=== PATIENT | male | born 1955 | race Caucasian/White ===

== ENCOUNTER 2021-02-05 11:51 | Day surgery (SDC) | payer OTHER, SELFPAY ==
[2021-01-31 12:58] VITALS: BMI 28.2
--- NOTE | 2021-02-04 09:02 | HO.ANESPROP2 ---
Documented by User: Indigo Lujan NP 02/04/21 09:02 HPI - Anesthesia Eval Consult details Narrative: 65yo M for Colonoscopy [facility] Past Medical History Medical History (Updated 01/31/21 @ 12:55 by Georgia Dong RN) Asthma Elevated cholesterol Seasonal allergies Surgical History Surgical History (Updated 01/31/21 @ 12:56 by Georgia Dong RN) H/O inguinal hernia repair Hx of colonoscopy Social History Social History (Updated 01/31/21 @ 12:57 by Georgia Dong RN) Patient Tobacco Use Status: Never used Tobacco Use of substances other than those prescribed or required for medical reasons: No Are you DNR?: No Advance Directives: No Advance Directives Information Provided: No (info mailed) Advance Directives on File: No Meds Allergies Allergy/AdvReac Type Severity Reaction Status Date / Time No Known Allergies Allergy Verified 01/31/21 12:56 Home Medications Medication Instructions Recorded Confirmed Last Taken Type Flovent Diskus 01/31/21 01/31/21 02/05/21 History atorvastatin 01/31/21 Unknown History montelukast 10 mg tablet 10 mg PO BEDTIME 01/31/21 01/31/21 Unknown History (Frances) Exam Exam Date and Time: February 04, 2021 09 Height,Weight and Vital Signs: Height 5 ft 6 in Weight 79.379 kg Assessment and Plan Assessment Anesthesia Assessment: Chart Reviewed Documented by User: Paola Emery MD 02/05/21 13:53 [facility] Past Medical History Medical History (Updated 01/31/21 @ 12:55 by Georgia Dong RN) Asthma Elevated cholesterol Seasonal allergies Family History Family history of problems with anesthesia: No Surgical History Surgical History (Updated 01/31/21 @ 12:56 by Georgia Dong RN) H/O inguinal hernia repair Hx of colonoscopy History of Problems with Anesthesia: No Social History Social History (Updated 01/31/21 @ 12:57 by Georgia Dong RN) Patient Tobacco Use Status: Never used Tobacco Use of substances other than those prescribed or required for medical reasons: No Are you DNR?: No Advance Directives: No Advance Directives Information Provided: No (info mailed) Advance Directives on File: No Meds Allergies Allergy/AdvReac Type Severity Reaction Status Date / Time No Known Allergies Allergy Verified 01/31/21 12:56 Home Medications Medication Instructions Recorded Confirmed Last Taken Type Flovent Diskus 01/31/21 01/31/21 02/05/21 History atorvastatin 01/31/21 Unknown History montelukast 10 mg tablet 10 mg PO BEDTIME 01/31/21 01/31/21 Unknown History (Singulair) Exam Height,Weight and Vital Signs: Height 5 ft 6 in Weight 79.379 kg Vital Signs Temp Pulse Resp BP Pulse Ox 02/05/21 12:00 98 F 69 18 157/96 H 98 Airway Mallampati Class: II TM Dist: >3cm Neck ROM: Full Loose/Missing/Broken Teeth: No Heart: RRR Lungs: CTAB Assessment and Plan Assessment Anesthesia Assessment: Anesthesia Plan Discussed Final Anesthetic Review Family History of Problems with Anesthesia: No History of Problems with Anesthesia: No NPO: Yes ASA Class: II Final Preanesthetic Review: No Changes in Pt Med Stat, Meds/Allgs Chart Reviewed, Consent Obtained/Reviewed and Anes Risks/Benef Reviewed Patient Risk: Low Procedure Risk: Low Assessment/Block/Sedation in SS: Assess/Block/Sedation-SS Anesthetic Plan Anesthetic Plan: MAC: Disposition: Standard PACU
[2021-02-05 12:00] VITALS: BP 157/96; PULSE 69; RESP 18; TEMP 36.6; O2SAT 98
[2021-02-05] MEDS: Lactated Ringers 1,000 ML 100 ML IVCONT (12:12)
--- NOTE | 2021-02-05 13:04 | MHC.SHP ---
Pre-Procedural Eval Section A Date of Service: 02/05/21 The patient is an INPATIENT: No Changes since office visit: No Cold of Flu in the past 2 weeks, No New Medical Problems, No Changes in Medication and No Patient answered all questions The History & Physical has been completed within 30 days and I have reviewed it.: Yes Section B Chief Complaint: screening Allergies: Allergies Allergy/AdvReac Type Severity Reaction Status Date / Time No Known Allergies Allergy Verified 01/31/21 12:56 Plan I have reviewed the history and physical and performed a pertinent physical examination on my patient. No changes have occurred unless specified.
--- NOTE | 2021-02-05 13:46 | PM.OP ---
Brief Operative Note Date of Service: 02/05/21 Pre-op diagnosis: screening Post-op diagnosis: same (polyps) Surgeon: Duc Hudson Anesthesia: MAC Was an [employer] used for this Procedure?: No Estimated blood loss (mL): 2 Pathology: other (polyps x3) Condition: stable Disposition: PACU
[2021-02-05 13:48] VITALS: BP 92/64; PULSE 96; RESP 16; TEMP 36.4; O2SAT 96
[2021-02-05 14:05] VITALS: BP 121/78; PULSE 68; RESP 16; TEMP 36.4; O2SAT 97
--- NOTE | 2021-02-05 21:34 | OP_ITS ---
SURGEON: Duc Hudson MD INDICATIONS: Colon cancer screening and prior history of adenomatous colon polyps. PREOPERATIVE DIAGNOSIS: POSTOPERATIVE DIAGNOSIS: PROCEDURE PERFORMED: Colonoscopy to the terminal ileum. ESTIMATED BLOOD LOSS: COMPLICATIONS: ANESTHESIA: ASSISTANTS: SPECIMENS: MEDICATIONS: Monitored anesthesia care. DESCRIPTION OF PROCEDURE: History and physical performed. The risks and benefits of the procedure were explained to the patient. Informed consent was obtained. The patient was placed in the left lateral decubitus position. A digital rectal exam was performed and was found to be normal. The Olympus pediatric video colonoscope was introduced into the rectum and advanced to the cecum without difficulty. The cecum was identified by transillumination, palpation, and identification of ileocecal valve. Examination was performed and the scope was removed. He tolerated the procedure well and was taken to recovery area in stable condition. FINDINGS: The terminal ileum was examined and appeared normal. The visualized colonic mucosa was normal. The quality of the prep was good. Three polyps were identified and removed, 2 with biopsy forceps and 1 with a snare. All measured less than 10 mm. These were located at 80 cm, 60 cm, and 40 cm. No other polyps were identified. There was mild sigmoid diverticulosis. Retroflexed examination showed small internal hemorrhoids. IMPRESSION: Colon polyps. RECOMMENDATION: Follow up the biopsy results. MD ASHLEY Jung/OSIRIS / [id number]
== END 2021-02-05 14:46 | disposition home or self-care (01) ==
PROVIDERS: PCP Internal Medicine; Visit Provider Internal Medicine Gastroenterology
PROC: 0DJD8ZZ Inspection of Lower Intestinal Tract, Via Natural or Artificial Opening Endoscopic (ICD-10-PCS; CPT 45378; principal; 2021-02-05 13:00)
DX: Z12.11 Encounter for screening for malignant neoplasm of colon (principal); Z86.010 Personal history of colon polyps; D12.4 Benign neoplasm of descending colon; D12.5 Benign neoplasm of sigmoid colon; K57.30 Diverticulosis of large intestine without perforation or abscess without bleeding; K64.8 Other hemorrhoids; E78.00 Pure hypercholesterolemia, unspecified; J45.30 Mild persistent asthma, uncomplicated; Z79.51 Long term (current) use of inhaled steroids; Z79.899 Other long term (current) drug therapy
CPT/HCPCS: 45385; 45380; 88305

== ENCOUNTER 2024-02-16 11:56 | Day surgery (SDC) | payer OTHER, MEDICARE, SELFPAY ==
--- NOTE | 2024-02-15 08:20 | HO.ANESPROP2 ---
Documented by User: Indigo Lujan NP 02/15/24 08:21 HPI - Anesthesia Eval Consult details Narrative: 68yo M for Colonoscopy [facility] Past Medical History Medical History Prostate cancer Elevated cholesterol Seasonal allergies Asthma Family History Family history of problems with anesthesia: No Surgical History Surgical History Hx of prostatectomy Hx of colonoscopy H/O inguinal hernia repair History of Problems with Anesthesia: No Social History Social History (Updated 01/31/21 @ 12:57 by Georgia Dong RN) Are you a primary farm or ranch animal caretaker to a significant other at home: No Do you presently have visiting nurse or other home services: No Patient Tobacco Use Status: Never used Tobacco Use of substances other than those prescribed or required for medical reasons: No Have you been hit, kicked, punched, or otherwise hurt by someone within the past year? If so, by whom?: No Are you DNR?: No Advance Directives: No Advance Directives Information Provided: Yes Recently lost weight without trying: No Nutrition Risks: No Nutritional Risk Meds Allergies Allergy/AdvReac Type Severity Reaction Status Date / Time No Known Allergies Allergy Verified 01/31/21 12:56 Home Medications ?Medication ?Instructions ?Recorded ?Confirmed ?Last Taken ?Type Flovent Diskus 01/31/21 01/31/21 02/05/21 History atorvastatin 01/31/21 Unknown History montelukast 10 mg tablet 10 mg PO BEDTIME 01/31/21 01/31/21 Unknown History (Singulair) albuterol sulfate 90 mcg/actuation inhalation 02/15/24 02/15/24 Unknown History aerosol inhaler multivitamin 1 tab PO DAILY 02/15/24 02/15/24 Unknown History Assessment and Plan Assessment Anesthesia Assessment: Chart Reviewed Final Anesthetic Review Family History of Problems with Anesthesia: No History of Problems with Anesthesia: No Documented by User: Florentin Turner MD 02/16/24 13:04 [facility] Past Medical History Medical History Prostate cancer Elevated cholesterol Seasonal allergies Asthma Surgical History Surgical History Hx of prostatectomy Hx of colonoscopy H/O inguinal hernia repair Social History Social History (Updated 01/31/21 @ 12:57 by Georgia Dong, JEREL) Are you a primary farm or ranch animal caretaker to a significant other at home: No Do you presently have visiting nurse or other home services: No Patient Tobacco Use Status: Never used Tobacco Use of substances other than those prescribed or required for medical reasons: No Have you been hit, kicked, punched, or otherwise hurt by someone within the past year? If so, by whom?: No Are you DNR?: No Advance Directives: No Advance Directives Information Provided: Yes Recently lost weight without trying: No Nutrition Risks: No Nutritional Risk Meds Allergies Allergy/AdvReac Type Severity Reaction Status Date / Time No Known Allergies Allergy Verified 01/31/21 12:56 Home Medications ?Medication ?Instructions ?Recorded ?Confirmed ?Last Taken ?Type Flovent Diskus 01/31/21 01/31/21 02/05/21 History atorvastatin 01/31/21 Unknown History montelukast 10 mg tablet 10 mg PO BEDTIME 01/31/21 01/31/21 Unknown History (Singulair) albuterol sulfate 90 mcg/actuation inhalation 02/15/24 02/15/24 Unknown History aerosol inhaler multivitamin 1 tab PO DAILY 02/15/24 02/15/24 Unknown History Exam Airway Mallampati Class: I TM Dist: >3cm Neck ROM: Full Loose/Missing/Broken Teeth: No Heart: ok Lungs: ok Assessment and Plan Assessment Anesthesia Assessment: Anesthesia Plan Discussed Final Anesthetic Review NPO: Yes ASA Class: II Final Preanesthetic Review: No Changes in Pt Med Stat, Meds/Allgs Chart Reviewed, Consent Obtained/Reviewed and Anes Risks/Benef Reviewed Patient Risk: Low Procedure Risk: Low Anesthetic Plan Anesthetic Plan: MAC: and Agree w/ Assess. and Plan Disposition: Standard PACU
[2024-02-16 12:17] VITALS: BMI 27.8
[2024-02-16 12:36] VITALS: BP 127/85; PULSE 98; RESP 18; TEMP 36.2; O2SAT 96
[2024-02-16] MEDS: Lactated Ringers 1,000 ML 100 ML IVCONT (12:44)
--- NOTE | 2024-02-16 13:04 | P.HPSUR_ITS ---
Pre-Procedural Eval Section A - 24 Hr Update-Section A only Date of Service: 02/16/24 Section B - Complete if H&P > 30 days Chief Complaint: Encounter for screening for malignant neoplasm of Details of Present Illness: see H&P no changes Relevant Family History (Specify if Yes): No Relevant Social History: None Present Medications: see Short Stay Collaborative assessment Medical History: No relevant PMH History of Previous Operations: No relevant previous surgery Allergies: Allergies Allergy/AdvReac Type Severity Reaction Status Date / Time No Known Allergies Allergy Verified 01/31/21 12:56 Review of Systems Sugical H&P ROS: Negative: Constitution, Cardiovascular, Respiratory, Neurological, Psychiatric, Hem-Onc, Allergic/Immunologic, Gastrointestinal, Genitourinary, Musculoskeletal, Integumentary, Endocrine and Eyes/Ears/No se/Throat Exam Surgical H&P Exam: Normal: HEENT, Normal: Heart, Normal: Lungs, Normal: Extremities, Normal: Abdomen, Normal: Skin and Normal: Neurological Plan Diagnosis/Plan: Unchanged I have reviewed the history and physical and performed a pertinent physical examination on my patient. No changes have occurred unless specified. Time Spent With Patient Time: Total time managing care of this patient today ____ minutes.
[2024-02-16 13:45] VITALS: BP 81/57; PULSE 98; RESP 18; TEMP 36.5; O2SAT 94
[2024-02-16 14:00] VITALS: BP 92/64; PULSE 84; RESP 18; O2SAT 95
[2024-02-16 14:15] VITALS: BP 114/81; PULSE 93; RESP 16; TEMP 36.2; O2SAT 98
--- NOTE | 2024-02-16 15:07 | OP_ITS ---
DATE OF SERVICE: 02/16/2024 SURGEON: Duc Hudson MD INDICATIONS: Colon cancer screening. PREOPERATIVE DIAGNOSIS: POSTOPERATIVE DIAGNOSIS: PROCEDURE PERFORMED: Colonoscopy to the terminal ileum. ESTIMATED BLOOD LOSS: COMPLICATIONS: ANESTHESIA: Monitored anesthesia care. ASSISTANTS: SPECIMENS: DESCRIPTION OF PROCEDURE: A history and physical was performed. The risks and benefits of the procedure were explained to the patient and informed consent was obtained. The patient was placed in the left lateral decubitus position. A digital rectal exam was performed and was found to be normal. The Olympus pediatric video colonoscope was introduced into the rectum and advanced to the cecum. The cecum was identified by transillumination, palpation, and identification of ileocecal valve. Examination was performed and the scope was removed. He tolerated the procedure well and was returned to recovery area in stable condition. FINDINGS: The terminal ileum was examined and appeared normal. The visualized colonic mucosa was normal. The quality of the prep was good. No polyps were identified. There was mild sigmoid diverticulosis. Retroflexed examination showed some moderate-sized internal hemorrhoids. IMPRESSION: Normal colonoscopy. RECOMMENDATIONS: 1. Follow up as needed. 2. Repeat colonoscopy is recommended in 10 years for average-risk individuals. MD ASHLEY Jung/OSIRIS / [id number]
== END 2024-02-16 14:45 | disposition home or self-care (01) ==
PROVIDERS: PCP Internal Medicine; Visit Provider Internal Medicine Gastroenterology
PROC: 0DJD8ZZ Inspection of Lower Intestinal Tract, Via Natural or Artificial Opening Endoscopic (ICD-10-PCS; CPT 45378; principal; 2024-02-16 13:00)
DX: Z12.11 Encounter for screening for malignant neoplasm of colon (principal); Z86.0101 Personal history of adenomatous and serrated colon polyps; K57.30 Diverticulosis of large intestine without perforation or abscess without bleeding; K64.8 Other hemorrhoids; C61 Malignant neoplasm of prostate; J45.30 Mild persistent asthma, uncomplicated; E78.00 Pure hypercholesterolemia, unspecified; Z79.51 Long term (current) use of inhaled steroids; Z79.899 Other long term (current) drug therapy
CPT/HCPCS: 45378; J2003; J2704

== ENCOUNTER 2024-08-15 14:04 | Outpatient (AMB) | payer MEDICARE, SELFPAY ==
--- NOTE | 2024-08-15 14:16 | AM.OFFVISMDC ---
Intake Vital Signs 08/15/24 14:21 Height 5 ft 6 in Weight 185 lb BMI 29.9 BP 124/78 Respiration 14 Pulse 86 Pulse Source Pulse Oximeter Temp 97.6 F Temp Source Temporal Artery Scan Pulse Oximetry (%) 98 Oxygen Delivery Method Room Air Intake Visit Reasons: Wellness Visit Visual Effects Artist Required: No Accompanied by: Self / Same As Patient Allergies No Known Allergies Allergy (Verified 08/15/24 14:17) HPI Wellness Visit HPI Details 69-year-old male presents to the office for an annual wellness visit. [facility] Medical History Prostate cancer Elevated cholesterol Seasonal allergies Asthma Surgical History Hx of prostatectomy Hx of colonoscopy (~02/16/24) H/O inguinal hernia repair Family History Father Cancer Mother Pancreatic cancer Social History Are you a primary special needs child caregiver to a significant other at home: No Do you presently have visiting nurse or other home services: No Alcohol intake: current Alcohol intake frequency: a few times a week Patient Tobacco Use Status: Never used Tobacco Questionnaire Medicare Wellness Checkup [age] What gender do you identify with?: male During the past 4 weeks, how much have you been bothered by emotional problems such as feeling anxious, depressed, irritable, sad or downhearted, and blue?: not at all During the past 4 weeks, has your physical & emotional health limited your social activities with family, friends, neighbors, or groups?: not at all During the past 4 weeks, how much bodily pain have you generally had?: no pain During the past 4 weeks, was someone available to help you if you needed & wanted help?: yes, as much as I wanted During the past 4 weeks, what was the hardest physical activity you could do for at least 2 minutes?: heavy Can you get to places out of walking distance without help? (For eg., can you travel alone on buses, taxis or drive your car?): Yes Can you go shopping for groceries or clothes without someone's help?: Yes Can you prepare your own meals?: Yes Can you do your housework without help?: Yes Because of any health problems, do you need the help of another person with your personal care needs such as eating, bathing, dressing or getting around the house?: No Can you handle your own money without help?: Yes During the past 4 weeks, how would you rate your health in general?: very good During the past 4 weeks how have things been going for you?: very well; could hardly better Are you having difficulties driving your car?: no Do you always fasten your seat belt when you are in a car?: yes, usually During past 4 weeks, have you been bothered by the following: never: Falling or dizzy when standing up, Trouble eating well? and Problems using the telephone?, seldom: Teeth or denture problems?, sometimes: Tiredness or fatigue? and often: Sexual problems? Have you fallen 2 or more times in the past year?: No Are you afraid of falling?: No Are you a smoker?: no During the past 4 weeks, how many drinks of wine, beer, or other alcoholic beverages did you have?: 2-5 drinks per week Do you exercise for about 20 minutes 3 or more times a week?: yes, most of the time Have you been given information to help with the following?: no: Hazards in your house that might hurt you? and no: Keeping track of your medications? How often do you have trouble taking medicines the way you have been told to take them?: I always take medicine as prescribed How confident are you that you can control & manage most of your health problems?: very confident What is your race?: White Mini Mental State Exam (MMSE) Orientation What is the (year) (season) (date) (day) (month)?: year, season, date and day Where are we (state) (county) (town or city) (hospital) (floor)?: state, county and town or city Registration Name of 3 unrelated objects clearly and slowly, then ask patient to repeat all 3 of them. (1st repeat determines score. Make sure they can repeat all three): object 1, object 2 and object 3 Attention & Calculation (CHOOSE ONE) Ask pt to begin with 100 & count backward by 7. Stop after 5 repeats. If pt cannot ask them to spell the word WORLD backward.: 93, 86, 79 and 72 Recall Ask patient to repeat the 3 items from question #3.: object 1, object 2 and object 3 Score Score: 17 Activity of Daily Living Bathing - sponge bath, tub bath or shower: receives no assistance (gets in/out by self, if usual bathing means Dressing - getting clothes from closets & drawers, including inner/outer garments & fasteners.: gets clothes & gets completely dressed without help Toileting - going to the 'toilet room' for urine/bowel elimination & cleaning self/arranging clothes: goes to toilet room, cleans self, arranges clothes without help Transfer: moves in & out of bed and chair without help (may use support object) Continence: controls urination/bowel movements completely by self Feeding: feeds self without help Total Score: 0 Information obtained from: patient Using telephone: independent Traveling: independent Shopping: independent Preparing meals: independent Housework: independent Taking medicine: independent Managing money: independent PHQ-9 Over the last 2 weeks, how often have you been bothered by any of the following problems? 1. Little interest or pleasure in doing things: not at all 2. Feeling down, depressed, or hopeless: not at all 3. Trouble falling or staying asleep, or sleeping too much: several days 4. Feeling tired or having little energy: not at all 5. Poor appetite or overeating: not at all 6. Feeling bad about yourself - or that you are a failure or have let yourself or your family down: not at all 7. Trouble concentrating on things, such as reading the newspaper or watching television: not at all 8. Moving or speaking so slowly that other people could have noticed. Or the opposite - being so fidgety or restless that you have been moving around a lot more than usual: not at all 9. Thoughts that you would be better off or of hurting yourself in some way: not at all Total score: 1 Depression Screening Interpretation: Negative Depression Screening Done: Yes Source: Developed by Drs. Charles Messer, Alaina Torres, Giovani Lee and colleagues, with an educational jarrett from [employer]. Physical Exam Vital Signs: Last Vital Signs Temp 97.6 F 08/15/24 14:21 Pulse 86 08/15/24 14:21 Resp 14 08/15/24 14:21 BP 124/78 08/15/24 14:21 Pulse Ox 98 08/15/24 14:21 Oxygen Delivery Method Room Air 08/15/24 14:21 BMI result Body Mass Index 29.9 Balance: Normal Romberg: Negative Tandem Walk: Able to Walk and Turn: Able to Rise from sit to stand: able to Hearing Whisper test: Pass ZION and individualized screening schedule presented to the patient. Assessment & Plan Assessment & Plan (1) Prostate cancer: Code(s): C61 - Malignant neoplasm of prostate Plan: Patient has a urologist (2) Annual physical exam: Code(s): Z00.00 - Encounter for general adult medical examination without abnormal findings Plan: As below. Plan History of Present Illness The patient is a 69-year-old male presenting with follow-up needs post-prostate cancer treatment. In August last year, he underwent a prostatectomy following his prostate cancer diagnosis. He subsequently received radiation therapy, completed in July of this year, and has been on hormone therapy which he continues. The patient's general health is stable, but he experiences residual urinary incontinence as a side effect of his treatment, noting some improvement over time but persisting issues. He recalls his last blood work included PSA testing at [facility], with plans for future testing. 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 - Engages in activities such as raking and cutting brush, indicating functional activity capability. - Reports increased fatigue, a residual effect of radiation therapy. Review of Systems - Genitourinary: Reports urinary incontinence, improved but persisting. - Sleep: Reports interrupted sleep due to nocturia (wakes once or twice per night). - Musculoskeletal: Denies any difficulty in performing activities of daily living, reports ability to complete physical tasks such as yard work. - Neurologic/Psychiatric: Denies sleep disturbances unrelated to nocturia, denies issues with cognition or performing daily mental activities. Physical Exam General: Cooperative and healthy appearing Nutritional Appearance: Well nourished Orientation/consciousness: Patient oriented x3 Limitations: No limitations Head: Normal to inspection General: Appearance normal, both eyes and all related structures Neck: Normal visual inspection Chest: Normal palpation of entire chest wall Respiratory: N ormal respiratory effort Neurology: Patient oriented x3, reports increased fatigue, likely due to radiation therapy. Results - Labs: PSA test previously done at [facility]. Plan The patient will continue his current hormone therapy as part of his prostate cancer management. Further monitoring with regular PSA testing is essential and blood work orders will be facilitated for convenient access. Urinary incontinence, secondary to treatment, remains under observation, and supportive measures will be considered if symptoms persist or worsen. The patient will maintain his physical activities, and any increased fatigue will be monitored in the context of his post-radiation recovery. Patient was informed and verbally consented to the use of an ambient scribe for clinic note documentation during this visit. Discussion Notes During the consultation, discussions were focused on the patient's management and follow-up care for prostate cancer. Regular PSA testing and continuity of hormone therapy were emphasized as cotton components of monitoring his treatment effectiveness. The patient was instructed on where to go for his next blood test to ensure it aligns with the care facilities' systems for optimal coordination of care. Discussions included encouraging the patient to maintain physical activities to preserve functional status while attending to any fatigue experienced. No additional prescriptions were required at this time, and he was advised to contact the pharmacy for refills as needed. Patient Instructions - Continue with your current hormone therapy. - Schedule and complete your blood work at the designated facility. - Monitor urinary incontinence and report any changes. - Stay active and note any changes in fatigue levels. - Contact the pharmacy for prescription refills as needed. - Follow up in six months or sooner if there are changes in your condition. Orders: Orders Basic Metabolic Panel 08/18/24 C61 - Malignant neoplasm of prostate Lipid Panel 08/18/24 C61 - Malignant neoplasm of prostate Liver Panel 08/18/24 C61 - Malignant neoplasm of prostate Complete Blood Count no Diff 08/18/24 C61 - Malignant neoplasm of prostate Thyroid Stimulating Hormone 08/18/24 C61 - Malignant neoplasm of prostate Prostate Specific Antigen Scr 08/18/24 C61 - Malignant neoplasm of prostate Quality Reporting (2019) Depression/Bipolar (159/160/161/177) PHQ-9: Total score: 1 Coding Level of Care Code Medicare First (G0438) Est Pt Level 4 (71777) Diagnoses Prostate cancer C61 Annual physical exam Z00.00
[2024-08-15 14:21] VITALS: BP 124/78; PULSE 86; RESP 14; TEMP 36.4; O2SAT 98; BMI 29.9
== END 2024-08-15 14:50 | disposition home or self-care (01) ==
LOC: HO.HMCSH 14:04
PROVIDERS: PCP Internal Medicine; Visit Provider Internal Medicine
DX: Z00.00 Encounter for general adult medical examination without abnormal findings (principal); C61 Malignant neoplasm of prostate

== ENCOUNTER → 2024-08-15 14:04 | Outpatient (BNVA) | payer MEDICARE, SELFPAY | PROVIDERS: PCP Internal Medicine; Visit Provider Internal Medicine | DX: Z00.00 Encounter for general adult medical examination without abnormal findings (principal); Z85.46 Personal history of malignant neoplasm of prostate; Z90.79 Acquired absence of other genital organ(s); R32 Unspecified urinary incontinence | CPT/HCPCS: 96127; 99212 ==

== ENCOUNTER 2024-08-18 08:13 | Outpatient (REF) | payer MEDICARE, SELFPAY ==
[2024-08-18 10:07] LABS: Hemoglobin 13.2 g/dl (14.0-18.0); Mean Corpuscular HGB Conc 33.8 g/dl (31.0-36.0); Mean Corpuscular Hemoglobin 32.9 pg (27.0-33.0); Mean Corpuscular Volume 97.3 fL (80.0-98.0); Mean Platelet Volume 9.6 fL (9.4-12.4); Platelet Count 154 X10*3/uL (160-400); Red Blood Count 4.01 X10*6/uL (4.60-5.80); Red Cell Distribution Width 12.9 % (11.0-16.0)
[2024-08-18 10:44] LABS: Prostate Specific Antigen Scr < 0.10 ng/mL (<0.05-4.0)
[2024-08-18 10:58] LABS: Alanine Aminotransferase 41 U/L (0-40); Albumin Level 3.9 g/dL (3.5-5.0); Anion Gap 10 (12-20); Aspartate Amino Transferase 29 U/L (5-37); Bilirubin Direct 0.2 mg/dL (0.0-0.5); Bilirubin Total 0.6 mg/dL (0.0-1.0); Blood Urea Nitrogen 15 mg/dL (9-16); Calcium 9.3 mg/dL (8.4-10.2); Carbon Dioxide 25 mmol/L (22-29); Chloride 109 mmol/L (96-108); Cholesterol 182 mg/dL (<200); Estimated Glomerular Filt Rate > 60; Glucose Random 95 mg/dL (60-115); HDL Cholesterol 45 mg/dL (>40); LDL Cholesterol Calculated 119 mg/dL (<100); Potassium 3.8 mmol/L (3.3-5.1); Sodium 140 mmol/L (135-145); Thyroid Stimulating Hormone 2.06 uIU/mL (0.32-4.0); Total Protein 6.5 g/dL (6.5-8.0); Triglycerides 92 mg/dL (<150)
[2024-08-18 19:43] LABS: Alkaline Phosphatase 70 U/L (39-117)
== END 2024-08-18 08:14 | disposition home or self-care (01) ==
LOC: HO.HMGCLDS 08:13
PROVIDERS: PCP Internal Medicine; Visit Provider Internal Medicine
DX: C61 Malignant neoplasm of prostate (principal); Z12.5 Encounter for screening for malignant neoplasm of prostate; Z13.6 Encounter for screening for cardiovascular disorders
CPT/HCPCS: 36415; 80048; 80061; 80076; 84153; 84443; 85027

== ENCOUNTER 2025-02-13 13:15 | Outpatient (AMB) | payer MEDICARE, SELFPAY ==
[2025-02-13 13:19] VITALS: BP 144/90; PULSE 86; RESP 14; TEMP 36.6; O2SAT 98; BMI 29.0
--- NOTE | 2025-02-13 13:19 | A.OFFPC_ITS ---
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: No Accompanied by: Self / Same As Patient Allergies No Known Allergies Allergy (Verified 02/13/25 13:20) Tobacco use date assessed: 02/13/25 Fall risk assessment: No Falls in past year Last assessed Fall Risk: 02/13/25 Dental Screening Dental Screen Date: 02/13/25 Did you have a dental visit in the last 12 months?: No Did you have a dental problem in the last 6 months where you did not have access to dental care?: No Was dental information given to patient?: Patient has dentist [facility] Medical History (Updated 02/13/25 @ 13:38 by Rafi Govea MD) Essential hypertension Prostate cancer Elevated cholesterol Seasonal allergies Asthma Surgical History Hx of prostatectomy Hx of colonoscopy (~02/16/24) H/O inguinal hernia repair Family History Father Cancer Mother Pancreatic cancer Social History (Updated 02/13/25 @ 13:27 by TALIA Benites) Housing: House Are you a primary point of care technician to a significant other at home: No Do you presently have visiting nurse or other home services: No Alcohol intake: current Alcohol intake frequency: a few times a week Patient Tobacco Use Status: Never used Tobacco service: No Current occupational status: retired Cognitive needs: No Hearing needs: No Vision needs: Yes (rx glasses) Questionnaire PHQ-9 Over the last 2 weeks, how often have you been bothered by any of the following problems? 1. Little interest or pleasure in doing things: not at all 2. Feeling down, depressed, or hopeless: not at all 3. Trouble falling or staying asleep, or sleeping too much: several days 4. Feeling tired or having little energy: not at all 5. Poor appetite or overeating: not at all 6. Feeling bad about yourself - or that you are a failure or have let yourself or your family down: not at all 7. Trouble concentrating on things, such as reading the newspaper or watching television: not at all 8. Moving or speaking so slowly that other people could have noticed. Or the opposite - being so fidgety or restless that you have been moving around a lot more than usual: not at all 9. Thoughts that you would be better off or of hurting yourself in some way: not at all Total score: 1 Depression Screening Interpretation: Negative Depression Screening Done: Yes Source: Developed by Drs. Charles Messer, Alaina Torres, Giovani Lee and colleagues, with an educational jarrett from [employer]. Thrive Questionnaire Date Thrive assessed: 02/13/25 I am a: Patient What is your living situation today?: I have a steady place to live Within the past 12 months, did the food you bought not last and you didn't have the money to get more?: Never true Within the past 12 months, did you worry whether your food would run out before you got money to buy more?: Never true Do you have trouble paying for medicines?: No Do you have trouble getting transportation to medical appointments?: No Do you have trouble paying your heating and electricity bill?: No Do you have trouble taking care of your child, family member or friend?: No Do you have trouble with day-to-day activities such as bathing, preparing meals, shopping, managing finances, etc.?: No Are you currently unemployed and looking for a job?: No Are you interested in more education?: No Please select the resources that you would like help with: None THRIVE Score: 0 AUDIT C Alcohol Use Questionnaire (AUDIT-C) 1. How often do you have a drink containing alcohol?: 2-3 times a week 2. How many drinks containing alcohol do you have on a typical day when you are drinking?: 1 or 2 3. How often do you have six or more drinks on one occasion?: Never Total Score: 3 JAMIE-7 AMB Questionnaire JAMIE-7 Date JAMIE - 7 assessed: 02/13/25 Feeling nervous, anxious, or on edge: 0 = Not at all Not being able to stop or control worryin = Not at all Worrying too much about different things: 0 = Not at all Trouble relaxin = Not at all Being so restless that it is hard to sit still: 0 = Not at all Becoming easily annoyed or irritable: 0 = Not at all Feeling afraid as if something awful might happen: 0 = Not at all Total JAMIE-7 score (0-4 normal; 5-9 mild; 10-14 moderate; 15-21 severe): 0 Source: Developed by Drs. Charles Mesesr, Alaina Torres, Giovani Lee and colleagues, with an educational jarrett from [employer]. Physical exam (Primary Care) Vital Signs: Last Vital Signs Temp 97.8 F 02/13/25 13:19 Pulse 86 02/13/25 13:19 Resp 14 02/13/25 13:19 BP 144/90 H 02/13/25 13:19 Pulse Ox 98 02/13/25 13:19 Oxygen Delivery Method Room Air 02/13/25 13:19 BMI result Body Mass Index 29.0 Tobacco/Smoking Status: Tobacco use Status Tobacco use date assessed 02/13/25 02/13/25 13:28 Patient Tobacco Use Status Never used Tobacco 02/13/25 13:28 PHQ-9: PHQ-9 Score PHQ-9: Total score 1 02/13/25 13:28 Depression Screening Interpretation: Negative Thrive Assessment: Date of Thrive Assessment Date Thrive assessed 02/13/25 02/13/25 13:28 Coding Level of Care Code Est Pt Level 4 (90510) Complex EM visit Add On G2211 Diagnoses Prostate cancer C61 Essential hypertension I10 Assessment & Plan Assessment & Plan (1) Prostate cancer: Code(s): C61 - Malignant neoplasm of prostate Category: Medical Plan: History of Present Illness - The patient is a 69-year-old male presenting for a follow-up on prostate cancer management and general health maintenance. - Prostate cancer: The patient is undergoing radiation and hormonal therapy, with recent PSA tests showing undetectable levels. - Bladder control issues: Occasional urinary incontinence is reported, with noted improvement. - Hyperlipidemia: Slightly elevated LDL cholesterol was previously noted, but no major concerns were raised. - Hypertension: Elevated blood pressure was observed during the visit, contrasting with previous normal readings. - Preventative care: The patient is compliant with colonoscopy screenings and requested an influenza vaccination. Social History Review of Systems - Genitourinary: Reports occasional urinary incontinence. - Cardiovascular: Denies chest pain or palpitations. Physical Exam General: Cooperative and healthy appearing Nutritional Appearance: Well nourished Orientation/consciousness: Patient oriented x3 Limitations: No limitations Head: Normal to inspection General: Appearance normal, both eyes and all related structures Neck: Normal visual inspection Chest: Normal palpation of entire chest wall Respiratory: Normal respiratory effort Neurology: Patient oriented x3 Results - Labs: Recent PSA tests undetectable. - Labs: LDL cholesterol slightly elevated in past results. Plan - Continue prostate cancer treatment and monitor PSA levels. - Manage bladder control with lifestyle changes and observe progress. - Maintain statin therapy for hyperlipidemia and monitor LDL levels. - Assess and manage elevated blood pressure. - Provide influenza vaccination today. Discussion Notes During the visit, we discussed the ongoing management of prostate cancer, including the effectiveness of current treatments and the importance of regular PSA monitoring. We also addressed bladder control issues and the need for lifestyle modifications. The patient was informed about the slightly elevated LDL cholesterol and the continuation of statin therapy. We noted the elevated blood pressure and discussed potential adjustments in management. The patient agreed to receive the influenza vaccination today. Patient Instructions - Continue with current prostate cancer treatment and attend regular PSA tests. - Implement lifestyle changes to improve bladder control. - Take statin medication as prescribed and monitor cholesterol levels. - Monitor blood pressure regularly and follow up if elevated. - Receive influenza vaccination today. (2) Essential hypertension: Code(s): I10 - Essential (primary) hypertension Category: Medical Plan: BP is slightly elevated. Currently on no medications. Record BP at home and send a few readings. Plan History of Present Illness - The patient is a 69-year-old male presenting for a follow-up on prostate cancer management and general health maintenance. - Prostate cancer: The patient is undergoing radiation and hormonal therapy, with recent PSA tests showing undetectable levels. - Bladder control issues: Occasional urinary incontinence is reported, with noted improvement. - Hyperlipidemia: Slightly elevated LDL cholesterol was previously noted, but no major concerns were raised. - Hypertension: Elevated blood pressure was observed during the visit, contrasting with previous normal readings. - Preventative care: The patient is compliant with colonoscopy screenings and requested an influenza vaccination. Social History Review of Systems - Genitourinary: Reports occasional urinary incontinence. - Cardiovascular: Denies chest pain or palpitations. Physical Exam General: Cooperative and healthy appearing Nutritional Appearance: Well nourished Orientation/consciousness: Patient oriented x3 Limitations: No limitations Head: Normal to inspection General: Appearance normal, both eyes and all related structures Neck: Normal visual inspection Chest: Normal palpation of entire chest wall Respiratory: Normal respiratory effort Neurology: Patient oriented x3 Results - Labs: Recent PSA tests undetectable. - Labs: LDL cholesterol slightly elevated in past results. Plan - Continue prostate cancer treatment and monitor PSA levels. - Manage bladder control with lifestyle changes and observe progress. - Maintain statin therapy for hyperlipidemia and monitor LDL levels. - Assess and manage elevated blood pressure. - Provide influenza vaccination today. Discussion Notes During the visit, we discussed the ongoing management of prostate cancer, including the effectiveness of current treatments and the importance of regular PSA monitoring. We also addressed bladder control issues and the need for lifestyle modifications. The patient was informed about the slightly elevated LDL cholesterol and the continuation of statin therapy. We noted the elevated blood pressure and discussed potential adjustments in management. The patient agreed to receive the influenza vaccination today. Patient Instructions - Continue with current prostate cancer treatment and attend regular PSA tests. - Implement lifestyle changes to improve bladder control. - Take statin medication as prescribed and monitor cholesterol levels. - Monitor blood pressure regularly and follow up if elevated. - Receive influenza vaccination today.
--- OUTSIDE RECORDS SUMMARY | 2025-02-13 16:04 | XMS_ITS | Encounter Summary ---
Author Organization [facility] Address [address] [place] [address] Drive [address] [place] [phone] Phone Care Team Providers Care Power Regulator Name Role Phone Charles Sun DO Primary Care Provider Torsten Kramer MD Unavailable Sergei Jessica MD Unavailable Esha Barbosa MD, MPH Unavailable Torres Mayorga MD, MPH Unavailable [phone] Barrie Koenig MD Unavailable [phone] Thomas Lam MD Unavailable Genna Rayo RN Unavailable JOSE FRANCISCO [email or web address] Encounter Details Date Type Department Care Team (Late st Contact Info) Description 05/05/2024 Telephone [facility] Department of Radiation Oncology, At [address] [address] Shirley Loving, JEREL [address] [place] [phone] [email or web address] Social History Tobacco Use Types Packs/Day Years Used Date Smoking Tobacco: Never Smokeless Tobacco: Never Alcohol Use Standard Drinks/Week Comments Yes 8 (1 standard drink = 0.6 oz pur e alcohol) Child or Family Care Answer Date Record ed Do you have problems with on e of the following making it difficult for you to work, study, or receive health care? No 06/24/2023 Education Answer Date Recorded Are you interested in more education? Not on loyd e 06/01/2023 Are you concerned about learning? Not on file 06/01/2023 No 06/01/2023 No 06/01/2023 Food Answer Date Recorded Within the past 6 months we worried whether our food would run out before we got money to buy more. Never True 06/24/2023 Within the past 6 months the food we bought just didn't last and we didn't have enough money to get more. Never True Residential Stability Answer Date Recor ded What is your housing situation today? I have soniya jeronimo 06/24/2023 How many times have you move d in the past 12 months? Zero (I did not move) 06/24/2023 Paying for Meds Answer Date Recorded Do you have trouble paying for medicines? No 06/24/2023 Paying Utility Bills Answer Date Record ed Do you have trouble paying your heating or elect ricity bill? No 06/24/2023 Transportation Answer Date Recorded Has the lack of transportati on kept you from medical appointments or from getting medications? No 06/24/2023 Digital Access Answer Date Recorded No 06/01/2023 No 06/01/2023 Reliable internet access at home? Not on file 06/01/2023 Device with a working camera? Not on file Intimate Partner Violence Answer Date R ecorded Are you denied basic needs s uch as food, clothing, or medical care? Deferred 09/08/2023 In the past 12 months have y ou been in a relationship with a person who hurts, threatens, or tries to control you? Deferred 09/08/2023 Are you denied basic needs s uch as food, clothing, or medical care? Deferred 09/08/2023 In the past 12 months have y ou been in a relationship with a person who hurts, threatens, or tries to control you? Deferred 09/08/2023 Sex and Gender Information Value Date Recorded Sex Assigned at Male 05/20/2023 4:21 PM EST Legal Sex Male 4:19 PM EST Gender Identity Male 05/20/2023 4:21 PM EST Sexual Orientation Straight 05/20/2023 4: 21 PM EST documented as of this encounter Plan of Treatment Upcoming Encounters Date Type Department Care Team (Late st Contact Info) Description 03/06/2025 11:00 AM EST Blood Draw DF/BWCC at [facility], Phlebotomy Services [address] [place] [address] Thomas Lam MD [address] [place] [phone] [email or web address] 03/08/2025 2:00 PM EST Office Visit [facility] at [address] [address] Thomas Lam MD [address] [place] [phone] [email or web address] 03/08/2025 2:30 PM EST Infusion DF/BWCC at [facility], Infusion Therapy Services [address] [place] [address] Thomas Lam MD [address] [place] [phone] [email or web address] documented as of this encounter Visit Diagnoses Not on filedocumented in this encounter Care Teams Power Regulator Relationship Specialty Start Date End Date Charles Sun DO [address] [place] [address] PCP - General Internal Medicine 05/20/23 Torsten Kramer MD [address] [place] [address], [address] [address] [email or web address] Urology 05/20/23 Sergei Jessica MD [address] [place] [address] [email or web address] Urology 06/01/23 Esha Barbosa MD, MPH [address] [place] [phone] [email or web address] Medical Oncology 06/01/23 Torres Mayorga MD, MPH [address] [place], [place] [address]- [address] [address] [email or web address]@[facility] Radiation Oncology 01/17/24 Barrie Koenig MD [address] [place] [address] Marcello@[email or web address] Radiation Oncology 01/17/24 Thomas Lam MD [address] [place] [phone] [email or web address] Medical Oncology 01/31/24 Genna Rayo, JEREL [address] [place] [address] [email or web address] Registered Nurse 02/03/24 documented as of this encounter Additional Source Comments The information contained in this document represents components of the legal health record. It is not the complete legal health record.[facility]
--- OUTSIDE RECORDS SUMMARY | 2025-02-13 16:04 | XMS_ITS | Encounter Summary ---
Author Organization [facility] Address [address] [place] [address] [place] [phone] Phone Care Team Providers Care Nurse Chemical Dependency Name Role Phone Charles Sun DO Primary Care Provider Torsten Kramer MD Unavailable Sergei Jessica MD Unavailable Esha Barbosa MD, MPH Unavailable Torres Mayorga MD, MPH Unavailable Barrie Koenig MD Unavailable [phone] Thomas Lam MD Unavailable [phone] Genna Rayo RN Unavailable JOSE FRANCISCO [email or web address] Encounter Details Date Type Department Care Team (Late st Contact Info) Description 09/08/2023 Procedure Pass [facility] Periop [address] [place] [address] Social History Tobacco Use Types Packs/Day Years Used Date Smoking Tobacco: Never Smokeless Tobacco: Never Alcohol Use Standard Drinks/Week Comments Never 0 (1 standard drink = 0.6 oz pur [...] your housing situation today? I have soniya sing 06/24/2023 How many times have you move [...] 11:00 AM EST Blood Draw DF/BWCC at [facility], Phlebotomy Services [address] [place] [address] Thomas Lam MD [address] [place] [phone] [email or web address] 03/08/2025 2:00 PM EST Office Visit [facility] at [address] [address] Thomas Lam MD [address] [place] [phone] [email or web address] 03/08/2025 2:30 PM EST Infusion DF/BWCC at [facility], Infusion Therapy Services [address] [place] [address] Thomas Lam MD [address] [place] [phone] [email or web address] documented as of this encounter Visit Diagnoses Not on filedocumented in this encounter Additional Health Concerns Infection Onset Date Last Indicated Resolved Time CoV-Exposed Comment:Patient exposed to a COVID-19 positive close contact in the community on 01/20/2024. See infection control note dated 01/20/2024 for more information. [facility] IC received an email from an outpatient provider on 01/20/24. Per email a household member tested COVID positive on 01/18/24. Patient and family member unable to completely isolate separately. Resolution date set for 21 days from family member's positive COVID 19 test ( 01/18/24) 01/20/2024 01/20/2024 02/08/2024 1:22 AM E DT documented as of this encounter Care Teams Nurse Chemical Dependency Relationship Specialty Start Date End Date Charles Sun DO [address] [place] [address] PCP - General Internal Medicine 05/20/23 Torsten Kramer MD [address] [place] [address], [address] [place] [address] [email or web address] Urology 05/20/23 Sergei Jessica MD [address] [place] [phone] [email or web address] Urology 06/01/23 Esha Barbosa MD, MPH [address] [place] [phone] [email or web address] Medical Oncology 06/01/23 Torres Mayorga MD, MPH [address] [place] [address], [address] [place] [address] [email or web address] Radiation Oncology 01/17/24 Barrie Koenig MD [address] [place] [address] [email or web address]@[email or web address] Radiation Oncology 01/17/24 Thomas Lam MD [address] [place] [phone] [email or web address] Medical Oncology 01/31/24 Genna Rayo, JEREL [address] [place] [address] [email or web address] Registered Nurse 02/03/24 documented as of this encounter Additional Source Comments The information contained in this document represents components of the legal health record. It is not the complete legal health record.[facility]
--- OUTSIDE RECORDS SUMMARY | 2025-02-13 16:04 | XMS_ITS ---
Author Organization [facility] Address [address] [place] [address] [place] [address] Phone Care Team Providers Care Vice President Of Customer Service Name Role Phone Charles Sun DO Primary Care Provider Torsten Kramer MD Unavailable Sergei Jessica MD Unavailable Esha Barbosa MD, MPH Unavailable Torres Mayorga MD, MPH Unavailable Barrie Koenig MD Unavailable [phone] Thomas Lam MD Unavailable Genna Rayo RN Unavailable JOSE FRANCISCO [email or web address] Active Problems Problem Noted Date Diagnosed Date Pre-op evaluation 09/08/2023 History of colonic polyps 07/01/2023 Hypercholesterolemia 07/01/2023 Prostate cancer 07/01/2023 Cancer Staging:Pathologic stage from 09/08/2023:Stage DINH(pT3a, pN1, cM0, PSA: 8.7, Grade Group: 3, 09/08/23, [place]: 4, +: 3) - Signed by Torres Mayorga MD, MPH on 12/21/2023 Clinical stage from 01/01/2022:Stage I(cT1c, cN0, cM0, PSA: 8.4, Grade Group: 1, 01/01/22, [place]: 3, +: 3) - Signed by Torres Mayorga MD, MPH on 12/21/2023 Current Treatment and Therapy Plans LEUPROLIDE ACETATE 3 MONTH (LUPRON DEPOT 3 MONTH)* Plan Start Date:02/18/2024 Plan Provider:Thomas Lam MD Linked Problems Prostate cancer Treatment Medications leuprolide (3 month) (LUPRON DEPOT 3 MONTH) Past Treatment and Therapy Plans No past plan information found. Radiation Treatments * Course C1 05/30/2024 - 07/24/2024 Treatment Period Energy Fraction Dose Fractions Total Dose Plans Planned A2_ProstBed 07/11/2024 - 07/24/2024 180 cGy 1,800 cGy A1_Pelvis 05/30/2024 - 07/10/2024 180 cGy 8 5,040 cGy Reference Points Delivered [id number] 05/30/2024 - 07/24/2024 6,840 cGy A_PelvProstBed 05/30/2024 - 07/24/2024 6,840 cGy [id number]_5040 05/30/2024 - 07/10/2024 5,040 cGy
--- OUTSIDE RECORDS SUMMARY | 2025-02-13 16:04 | XMS_ITS | Clinical Summary ---
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 Active sildenafiL (VIAGRA) 50 mg tablet Take 1-2 tablets by mouth 20 minutes prior to sexual activity. AVOID NITRATES AND ALPHA BLOCKERS. Do not exceed 2 tablets in 24 hours Active montelukast (SINGULAIR) 10 mg tablet 1 tablet in the evening Orally Once a day Active atorvastatin (LIPITOR) 10 MG tablet 1 tablet Orally Once a day Active albuterol 90 mcg/actuation inhaler 1 puff as needed Inhalation every 4 hrs for 30 days Active MULTIVITAMINS WITH FLUORIDE 0.5 mg chewable tablet 1 capsule. Active fluticasone propionate (FLOVENT DISKUS) 50 mcg/actuation diskus inhaler Flovent Diskus Active tadalafiL (CIALIS, ADCIRCA) 20 MG tabletIndications :Erectile dysfunction after radical prostatectomy Take 1/2 (10 mg) tablet twice weekly post prostatectomy. 4 tablet 11 Active Additional Information Patient not taking.Reported on 07/20/2024 therapeutic multivitamin tablet Take 1 tablet by mouth daily. Active polyethylene glycol (MIRALAX) 17 gram/dose powder Take 17 g by mouth daily. Active simethicone 125 mg Cap Take 125 mg by mouth 4 (four) times a day as needed. Active Active Problems Problem Noted Date Diagnosed Date Pre-op evaluation 09/08/2023 History of colonic polyps 07/01/2023 Hypercholesterolemia 07/01/2023 Prostate cancer 07/01/2023 Cancer Staging:Pathologic stage from 09/08/2023:Stage DINH(pT3a, pN1, cM0, PSA: 8.7, Grade Group: 3, 09/08/23, Nikko: 4, +: 3) - Signed by Torres Mayorga MD, MPH on 12/21/2023 Clinical stage from 01/01/2022:Stage I(cT1c, cN0, cM0, PSA: 8.4, Grade Group: 1, 01/01/22, Clinton: 3, +: 3) - Signed by Torres Mayorga MD, MPH on 12/21/2023 Encounters Date Type Department Care Team Description 12/08/2024 Orders Only [facility] at [address] [address] Lorena Santiago Prostate cancer (Primary Dx) 12/07/2024 2:30 PM EDT Infusion [facility] at [facility], Infusion Therapy Services [address] [address] Thomas Lam MD Landry, Jennifer, JEREL Prostate cancer (Primary Dx) 12/07/2024 2:00 PM EDT Office Visit [facility] at [facility] [address] [address] Thomas Lam MD History of colonic polyps (Primary Dx); Prostate cancer 12/01/2024 Orders Only [facility] at [facility] [address] [address] Thomas Lam MD from Last 3 Months Family History Medical History Relation Comments Gallbladder disease Father Pancreatic cancer Mother Breast cancer Sister Relation Status Comments Father Mother Sister Alive Social History Tobacco Use Types Packs/Day Years Used Date Smoking Tobacco: Never Smokeless Tobacco: Never Tobacco Cessation:Counseling Given: Not Answered Alcohol Use Standard Drinks/Week Comments Yes 8 [...] uch as food, clothing, or medical care? No 08/24/2024 In the past 12 months have y ou been in a relationship with a person who hurts, threatens, or tries to control you? No 08/24/2024 Are you denied basic needs s uch as food, clothing, or medical care? No 08/24/2024 In the past 12 months have y ou been in a relationship with a person who hurts, threatens, or tries to control you? No 08/24/2024 Sex and Gender Information Value Date Recorded Sex Assigned at Male 05/20/2023 4:21 PM EST Legal Sex Male 4:19 PM EST Gender Identity Male 05/20/2023 4:21 PM EST Sexual Orientation Straight 05/20/2023 4: 21 PM EST Last Filed Vital Signs Vital Sign Reading Time Taken Comments Blood Pressure 108/71 12/07/2024 1:35 PM EDT Pulse 64 12/07/2024 1:35 PM EDT Temperature 36.7 C (98.1 F) 12/07/2024 1:34 PM EDT Respiratory Rate 18 12/07/2024 1:34 PM EDT Oxygen Saturation 100% 12/07/2024 1:35 PM EDT Inhaled Oxygen Concentration - - Weight 82.9 kg (182 lb 12.2 oz) 12/07/2024 1:34 PM EDT Height 167.4 cm (5' 5.91 ) 08/24/2024 2:39 PM ED T Body Mass Index 29.58 08/24/2024 2:39 PM EDT Plan of Treatment Upcoming Encounters Date Type Department Care Team (Late st Contact Info) Description 03/06/2025 11:00 AM EST Blood Draw [facility] at [facility], Phlebotomy Services [address] [place] [address] Thomas Lam MD [address] [place] [phone] [email or web address] 03/08/2025 2:00 PM EST Office Visit [facility] [address] [phone] Thomas Lam MD [address] [place] [phone] [email or web address] 03/08/2025 2:30 PM EST Infusion [facility] at [facility], Infusion Therapy Services [address] [address] Thomas Lam MD [address] [place] [phone] [email or web address] Health Maintenance Due Date Last Done Comments Adult Td,Tdap Booster 1956 LIPID PANEL 1956 DEPRESSION SCREENING 1968 HEPATITIS C SCREENING 1974 ZOSTER VACCINES (1 of 2) 1975 COLOGUARD 2001 COLONOSCOPY 2001 COLORECTAL CANCER SCREENING 2001 FIT TEST 2001 FOBT 2001 SIGMOIDOSCOPY 2001 VIRTUAL COLONOSCOPY 2001 INFLUENZA VACCINE (#1) 2024 , 02/23/2021, 02/21/2018 COVID-19 VACCINE (2024- season) 2025 02/25/2022, 04/10/2021, 06/10/2020, Additional history exists SCREENING FOR DIABETES 12/08/2027 12/07/2024 RSV VACCINE (1 - 1-dose 75+ series) 2031 PNEUMOCOCCAL VACCINES (50+ years) Completed 02/25/2022 SMOKING STATUS SCREENING (Once After 26 Yrs) Completed 07/13/2024 HEPATITIS A VACCINES Aged Out No long er eligible based on patient's age to complete this topic HIB VACCINES Aged Out No longer eligi ble based on patient's age to complete this topic MENINGOCOCCAL VACCINES (ACWY) Aged Out No longer eligible based on patient's age to complete this topic MENINGOCOCCAL VACCINES (B) Aged Out N o longer eligible based on patient's age to complete this topic Medical Devices Not on file Procedures Procedure Name Priority Date/Time Associated Diagnosis Comments TESTOSTERONE, TOTAL Routine 12/07/2024 1 :01 PM EDT History of colonic polyps PSA Routine 12/07/2024 1:01 PM EDT History of colonic polyps COMPREHENSIVE METABOLIC PANEL Routine 12/07/2024 1:01 PM EDT History of colonic polyps CBC AND DIFFERENTIAL Routine 12/07/2024 1:01 PM EDT History of colonic polyps from Last 3 Months Results * PSA (12/07/2024 1:01 PM EDT) Prostate Specific Antigen <0.04 <0.04 - 4.0 ng/mL [facility] Comment: Assay performed on the [employer] utilizing direct chemiluminescent methodology. Patient results determined by assays using different manufacturers or methods may not be comparable. Although this assay has an undetectable range of <0.04 ng/mL, readings of 0.04 or 0.05 ng/mL have been measured in patients clinically deemed unlikely to have significant levels of PSA (e.g. post-menopausal females or males with undetectable PSA on another method). Therefore, values in this range should be interpreted with caution. 12/07/2024 1:01 PM EDT us Thomas Lam MD LAB BLOOD ORDERABLES Final Result [facility] [address] [place] [address], [facility] [phone] * (ABNORMAL) Comprehensive metabolic panel (12/07/2024 1:01 PM EDT) Sodium 143 136 - 145 mmol/L [facility] Potassium 4.1 3.5 - 5.1 mmol/L [facility] Chloride 107 98 - 107 mmol/L [facility] Carbon Dioxide 27 20 - 31 mmol/L [facility] Anion Gap 9 5 - 15 mmol/L [facility] Glucose Random 113(H) 74 - 106 mg/dL [facility] Blood Urea Nitrogen 20 9 - 23 mg/dL [facility] Serum Creatinine 0.91 0.70 - 1.30 mg/dL [facility] Glomerular Filtration Rate Est 92 >60 [facility] Comment: Units - mL/min/1.73 msq CKD-EPI Creatinine Equation (2020) used as recommended by The [employer] Kid[employer]. Start date (06/09/22). Calcium 9.7 8.3 - 10.6 mg/dL [facility] Comment: Please Note: New method for Calcium testing live 03/13/2024. New reference range live 03/13/2024. Total Protein 6.6 5.7 - 8.2 g/dL [facility] Albumin Level 4.4 3.2 - 4.8 g/dL [facility] Globulin 2.0 2.0 - 3.5 g/dL [facility] Alkaline Phosphatase 77 46 - 116 U/L [facility] ALT 24 7 - 40 U/L [facility] AST 18 13 - 40 U/L [facility] Bilirubin Total 0.5 0.3 - 1.2 mg/dL [facility] 12/07/2024 1:01 PM EDT us Thomas Lam MD LAB BLOOD ORDERABLES Final Result [facility] [address] [place] [id number], [facility] [phone] * (ABNORMAL) CBC and differential (12/07/2024 1:01 PM EDT) WBC 4.7 4.0 - 11.0 10*3/uL [facility] RBC 4.00(L) 4.2 - 6.0 10*6/uL [facility] HGB 12.9(L) 13.0 - 18.0 g/dL [facility] HCT 37.4(L) 39.0 - 54.0 % [facility] MCV 93.5 80.0 - 96.0 fL [facility] MCH 32.3(H) 27.0 - 31.0 pg [facility] MCHC 34.5 32.0 - 36.0 g/dL [facility] RDW-CV 12.1(L) 12.8 - 18.4 % [facility] PLT 153 140 - 400 10*3/uL [facility] MPV 9.3 8.0 - 12.0 fL [facility] Neut Pct Auto 69.1 50 - 70 % [facility] Lymp Pct Auto 17.4(L) 25 - 45 % [facility] Wharton Pct Auto 9.3 4 - 13 % [facility] Eos Pct Auto 3.6 0 - 5 % [facility] Baso Pct Auto 0.2 0 - 2 % [facility] I.G. Pct Auto 0.4 0.0 - 0.5 % [facility] NRBC Pct Auto 0.0 0.0 - 0.2 % [facility] Neut Abs Auto 3.3 2.2 - 4.8 10*3/uL [facility] Lymph Abs Auto 0.8(L) 1.3 - 2.9 10*3/uL [facility] Wharton Abs Auto 0.44 0.3 - 0.8 10*3/uL [facility] Eos Abs Auto 0.2 0.0 - 0.2 10*3/uL [facility] Baso Abs Auto 0.0 0.0 - 0.1 10*3/uL [facility] I.G. Abs Auto 0.02 0.00 - 0.08 10*3/uL [facility] NRBC Abs Auto 0.00 0.000 - 0.012 10*3/uL [facility] Blood 12/07/2024 1:01 PM EDT Thomas Lam MD LAB BLOOD ORDERABLES Final Result [facility] [address] [place] [address], [facility] [phone] * (ABNORMAL) Testosterone, total (12/07/2024 1:01 PM EDT) Testosterone Total 10(L) 188 - 684 ng/dL [facility] Comment:Correction in Refere nce Range 06 June 2024 12/07/2024 1:01 PM EDT Thomas Lam MD LAB BLOOD ORDERABLES Final Result Performing Organization Address City/[facility]/ZIP Co de Phone Number [facility] [address] [place] [address], [facility] [phone] from Last 3 Months Insurance [employer] [place] [address] [place] [address] [place] [address] [place] [address] SHARED SERVICES [facility] SHARED SERVICES [facility] SH[employer]ED [employer] Advance Directives For more information, please contact: [phone] (9AM - 5PM [facility], Wednesday-Wednesday) Documents on File Type Date Recorded 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 Proxy 09/15/2023 4:33 PM Care Teams 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 Relationship Specialty Start Date End Date Charles Sun DO [address] [place] [phone] PCP - General Internal Medicine 05/20/23 Torsten Kramer MD [address] [place] [address], [address] [place] [address] [email or web address] 05/20/23 Sergei Jessica MD [address] [place] [id number] [email or web address] 06/01/23 Esha Barbosa MD, MPH [address] [place] [id number] [email or web address] Medical Oncology 06/01/23 Torres Mayorga MD, MPH [address] [place], [place] [phone]- [address] [phone] [email or web address] Oncology 01/17/24 Barrie Koenig MD [address] [place] [id number] [email or web address] Radiation Oncology 01/17/24 Thomas Lam MD [address] [place] [phone] [email or web address] Medical [email or web address] 01/31/24 Genna Rayo, RN [address] [place] [phone] [email or web address] Registered Nurse 02/03/24 Additional Source Comments The information contained in this document represents components of the legal health record. It is not the complete legal health record.[facility]
== END 2025-02-13 13:45 | disposition home or self-care (01) ==
LOC: HO.HMCSH 13:16
PROVIDERS: PCP Internal Medicine; Visit Provider Internal Medicine
DX: C61 Malignant neoplasm of prostate (principal); I10 Essential (primary) hypertension; Z23 Encounter for immunization

== ENCOUNTER → 2025-02-13 13:15 | Outpatient (BNVA) | payer MEDICARE, SELFPAY | PROVIDERS: PCP Internal Medicine; Visit Provider Internal Medicine | DX: I10 Essential (primary) hypertension (principal); C61 Malignant neoplasm of prostate; R32 Unspecified urinary incontinence; E78.5 Hyperlipidemia, unspecified; Z23 Encounter for immunization | CPT/HCPCS: 90471; 90656; 96127; 99212 ==